=== PATIENT | female | born 1945 | race Asian ===

== ENCOUNTER 2016-07-29 08:10 | Emergency (ER) | payer MEDICARE, MEDICAID ==
[~2016-07-29 08:10] MED LIST: ADULT LOW DOSE81 M1 PO; ALBUTEROL17 GM INH; ANTIVERT25 MG PO; BACTRIM DS1 TA1 PO; CARAFATE1 G PO; CEFDINIR300 M1 PO; CIPRO500 MG PO; CIPRODEX OTIC7.5 ML OT; COUGH DROPS1 EAC1 PO; DELSYM30 MG/5 M1 PO; EXCEDRIN EXTRA1 EAC4 PO; FISH OIL 1,0001 EA10 PO; FLONASE16 GM NS; LEXAPRO10 MG PO; LEXAPRO20 M2 PO; LEXAPRO20 MG; MAG-AL PLUS XS30 ML PO; MOTRIN IB200 M1 PO; MUCINEX600 M1 PO; MUCUS ER600 M1 PO; MULTIVITAMINS1 EAC6 PO; NEXIUM40 MG PO; NORVASC5 MG PO; OMEPRAZOLE20 M2 PO; ONDANSETRON ODT4 M1 PO; PATADAY2.5 M1 BOTH EYES; PHENERGAN25 MG/SUPP RC; PREDNISONE10 M1 PO; PREDNISONE10 MG PO; PREDNISONE20 MG PO; PRILOSEC10 MG; PRILOSEC20 MG; PRINIVIL10 M1 PO; PROAIR HFA8.5 GM IH; REGLAN10 MG; ROBITUSSIN NIG118 ML PO; SINGULAIR10 MG PO; SYMBICORT 160-1 PUFF INH; TYLENOL EXTRA500 M1 PO; TYLENOL325 M2 PO; TYLENOL500 MG PO; ULTRAM50 MG PO; XANAX0.5 M1 PO; XOPENEX0.63 MG/1 IH; ZOCOR20 M1 PO; ZOCOR20 MG PO; ZOFRAN ODT8 MG/TAB PO
[2016-07-29] MEDS ORDERED: IBUPROFEN200 M2 (08:34)
[2016-07-29] MEDS ORDERED: [UNRECOGNIZED DRUG - OTHER] (08:35)
[2016-07-29] MEDS ORDERED: NORVASC5 M2 PO (08:36)
[2016-07-29] MEDS ORDERED: MECLIZINE HCL25 M3 PO (08:37)
[2016-07-29] MEDS ORDERED: PROTONIX40 M2 (08:37)
[2016-07-29 09:35] LABS: BASO % 0.4 % (0-2); EOS % 0.2 % (0-7); HCT-HEMATOCRIT 40.2 % (34.0-49.0); HGB-HEMOGLOBIN 13.6 gm/dl (12.0-15.5); LYMPH % 21.8 % (20-45); MCHC MEAN CORPUSCULAR HGB CONC 33.8 % (32.0-36.0); MCV (MEAN CELL VOLUME) 91.6 fl (82.0-96.0); MEAN PLATELET VOLUME 9.8 cmc (9.4-12.4); MONO % 5.1 % (0-12); MONOCYTE ABSOLUTE COUNT 0.2 tho/cmm (0.0-1.2); NEUTROPHIL ABSOLUTE COUNT 3.3 tho/cmm (1.6-8.0); NEUTROPHIL-AUTOMATED 3.3 tho/cmm (1.6-8.0); NEUTROPHILS % 72.5 % (40-80); PLATELET COUNT 192 tho/cmm (150-450); RED BLOOD COUNT 4.39 mil/cmm (4.00-5.20); RED CELL DISTRIBUTION WIDTH 12.9 % (12.4-16.4); WHITE BLOOD COUNT 4.6 tho/cmm (4.0-10.0)
[2016-07-29 09:53] LABS: ALKALINE PHOSPHATASE 74 U/L (33-138); ALT/SGPT 23 U/L (12-78); ANION GAP 11 mmol/L (0-20); AST/SGOT 28 U/L (10-40); BILIRUBIN,TOTAL 0.4 mg/dl (0-1.5); BLOOD UREA NITROGEN 9 mg/dl (6-24); CALCIUM 9.2 mg/dl (8.5-10.5); CARBON DIOXIDE-VENOUS 26 mmol/L (22-32); CHLORIDE 113 mmol/l (96-110); CREATININE 0.72 mg/dl (0.50-1.10); GLUCOSE 111 mg/dL (70-110); LIPASE 233 U/L (73-393); POTASSIUM 3.8 mmol/L (3.7-5.1); SODIUM 146 mmol/L (135-145); eGFR VALUE FOR BLACK >90 mL/Min
[2016-07-29 10:26] LABS: URINE BILIRUBIN NEGATIVE (NEG); URINE BLOOD NEGATIVE (NEG); URINE GLUCOSE (UA) NEGATIVE (NEG); URINE KETONE NEGATIVE (NEG); URINE LEUKOCYTE ESTERASE POSITIVE (NEG); URINE NITRITE NEGATIVE (NEG); URINE PROTEIN NEGATIVE (NEG)
[2016-07-29 10:31] LABS: URINE APPEARANCE CLEAR; URINE COLOR PALE YELLOW
[2016-07-29 10:33] LABS: URINE BACTERIA 2+; URINE EPITHELIAL CELLS 0 /[HPF] (0-10); URINE RBC 0 /[HPF] (0-5)
[2016-07-29] MEDS ORDERED: ZOFRAN ODT4 MG PO (11:41)
[2016-07-29] MEDS ORDERED: PROVENTIL HFA6.7 G1 INH (11:41)
[2016-07-29] MEDS ORDERED: PRILOSEC OTC20 M1 PO (11:41)
[2016-11-07] MEDS ORDERED: BACTRIM DS TAB1 EAC2 PO (16:40)
[2016-11-07] MEDS ORDERED: VITAMIN D250000 UNI1 PO (16:41)
[2016-11-07] MEDS ORDERED: ATIVAN0.5 M1 PO (16:41)
[2016-11-07] MEDS ORDERED: LEXAPRO20 M2 PO (16:42)
[2016-11-07] MEDS ORDERED: PROTONIX40 M2 PO (16:42)
[2016-11-07] MEDS ORDERED: NORVASC5 M2 PO (16:42)
[2016-11-07] MEDS ORDERED: FLONASE ALLERG9.9 ML (16:43)
[2016-11-07] MEDS ORDERED: ZOFRAN4 M2 PO (16:45)
[2016-11-07] MEDS ORDERED: PYRIDIUM200 M2 PO (18:43)
[2016-11-07] MEDS ORDERED: NORCO 5/3251 TAB PO (18:43)
[2016-11-12] MEDS ORDERED: STOP HOME MEDICATION (15:08)
== END 2016-07-29 12:03 ==
LOC: EDMED 08:10
PROVIDERS: Emergency Medicine
DX: E86.0 Dehydration (principal); R06.00 Dyspnea, unspecified; R53.1 Weakness; R11.0 Nausea; J44.9 Chronic obstructive pulmonary disease, unspecified; I10 Essential (primary) hypertension; K21.9 Gastro-esophageal reflux disease without esophagitis; Z79.899 Other long term (current) drug therapy
CPT/HCPCS: J2405; J7030; Q9967